=== PATIENT | male | born 1960 | race Caucasian/White ===

== ENCOUNTER → 2016-09-16 | Outpatient (CLI) | payer OTHER | END | disposition home or self-care (01) | LOC: ECT 09:25 | DX: F32.2 Major depressive disorder, single episode, severe without psychotic features (principal); K21.9 Gastro-esophageal reflux disease without esophagitis; E78.5 Hyperlipidemia, unspecified; R73.03 Prediabetes ==

== ENCOUNTER 2016-09-19 07:26 | Outpatient (RCR) | payer OTHER ==
[~2016-09-19] VITALS: Ht 175.3 cm; Wt 82.3 kg
[2016-09-19] MEDS ORDERED: Methohexital Sodium Syr 100mg/10ml IVP ONE (07:27)
[2016-09-19] MEDS ORDERED: Midazolam 2mg/2ml Inj ONE ×2 (07:27)
[2016-09-19] MEDS ORDERED: Ketorolac 60mg Inj ONE ×2 (07:27)
[2016-09-19] MEDS ORDERED: Succinylcholine 20mg/ml 10ml vial ONE ×2 (07:27)
[2016-09-19] MEDS ORDERED: NS 550ML IV ONE ×2 (07:27)
[2016-09-19] MEDS ORDERED: Ketorolac 60mg Inj IV ONE (10:03)
[2016-09-21] MEDS ORDERED: Ketorolac 60mg Inj ONE (07:00)
[2016-09-21] MEDS ORDERED: Midazolam 2mg/2ml Inj ONE (07:00)
[2016-09-21] MEDS ORDERED: Succinylcholine 20mg/ml 10ml vial ONE (07:00)
[2016-09-21] MEDS ORDERED: Methohexital Sodium Syr 100mg/10ml IVP ONE (07:00)
[2016-09-21] MEDS ORDERED: NS 550ML IV ONE (07:00)
[2016-09-23] MEDS ORDERED: Methohexital Sodium Syr 100mg/10ml IVP ONE (07:00)
[2016-09-23] MEDS ORDERED: Midazolam 2mg/2ml Inj ONE (07:00)
[2016-09-23] MEDS ORDERED: Ketorolac 60mg Inj ONE (07:00)
[2016-09-23] MEDS ORDERED: NS 550ML IV ONE (07:00)
[2016-09-23] MEDS ORDERED: Succinylcholine 20mg/ml 10ml vial ONE (07:00)
[2016-09-26] MEDS ORDERED: Succinylcholine 20mg/ml 10ml vial ONE (07:00)
[2016-09-26] MEDS ORDERED: Ketorolac 60mg Inj ONE (07:00)
[2016-09-26] MEDS ORDERED: Methohexital Sodium Syr 100mg/10ml IVP ONE (07:00)
[2016-09-26] MEDS ORDERED: NS 550ML IV ONE (07:00)
[2016-09-26] MEDS ORDERED: Midazolam 2mg/2ml Inj ONE (07:00)
[2016-09-26] MEDS ORDERED: Atropine Sulfate 0.4mg/ml inj IVP PRN (09:03)
[2016-09-28] MEDS ORDERED: Methohexital Sodium Syr 100mg/10ml IVP ONE (07:00)
[2016-09-28] MEDS ORDERED: NS 550ML IV ONE (07:00)
[2016-09-28] MEDS ORDERED: Midazolam 2mg/2ml Inj ONE (07:00)
[2016-09-28] MEDS ORDERED: Succinylcholine 20mg/ml 10ml vial ONE (07:00)
[2016-09-28] MEDS ORDERED: Ketorolac 60mg Inj ONE (07:00)
[2016-09-30] MEDS ORDERED: Succinylcholine 20mg/ml 10ml vial ONE (07:00)
[2016-09-30] MEDS ORDERED: Methohexital Sodium Syr 100mg/10ml IVP ONE (07:00)
[2016-09-30] MEDS ORDERED: Midazolam 2mg/2ml Inj ONE (07:00)
[2016-09-30] MEDS ORDERED: Ketorolac 60mg Inj ONE (07:00)
[2016-09-30] MEDS ORDERED: NS 550ML IV ONE (07:00)
[2016-10-03] MEDS ORDERED: Ketorolac 60mg Inj ONE (07:00)
[2016-10-03] MEDS ORDERED: Succinylcholine 20mg/ml 10ml vial ONE (07:00)
[2016-10-03] MEDS ORDERED: NS 550ML IV ONE (07:00)
[2016-10-03] MEDS ORDERED: Ketamine 500mg Inj ONE (07:00)
[2016-10-03] MEDS ORDERED: Midazolam 2mg/2ml Inj ONE (07:00)
[2016-10-05] MEDS ORDERED: Succinylcholine 20mg/ml 10ml vial ONE (07:00)
[2016-10-05] MEDS ORDERED: Midazolam 2mg/2ml Inj ONE (07:00)
[2016-10-05] MEDS ORDERED: Methohexital Sodium Syr 100mg/10ml IVP ONE (07:00)
[2016-10-05] MEDS ORDERED: Ketorolac 60mg Inj ONE (07:00)
[2016-10-05] MEDS ORDERED: NS 550ML IV ONE (07:00)
[2016-10-07] MEDS ORDERED: NS 550ML IV ONE (07:00)
[2016-10-07] MEDS ORDERED: Ketorolac 60mg Inj ONE (07:00)
[2016-10-07] MEDS ORDERED: Midazolam 2mg/2ml Inj ONE (07:00)
[2016-10-07] MEDS ORDERED: Methohexital Sodium Syr 100mg/10ml IVP ONE (07:00)
[2016-10-07] MEDS ORDERED: Succinylcholine 20mg/ml 10ml vial ONE (07:00)
[2016-10-10] MEDS ORDERED: Methohexital Sodium Syr 100mg/10ml IVP ONE (09:00)
[2016-10-10] MEDS ORDERED: NS 550ML IV ONE (09:00)
[2016-10-10] MEDS ORDERED: Midazolam 2mg/2ml Inj ONE (09:00)
[2016-10-10] MEDS ORDERED: Succinylcholine 20mg/ml 10ml vial ONE (09:00)
[2016-10-10] MEDS ORDERED: Ketorolac 30mg Inj ONE ×2 (09:00)
== END 2016-10-13 | disposition home or self-care (01) ==
LOC: ECT 07:26
DX: F32.2 Major depressive disorder, single episode, severe without psychotic features (principal)
CPT/HCPCS: 90870; J0330; J1885; J2250; J2405; J3490; J7040

== ENCOUNTER 2016-10-14 04:43 | Outpatient (RCR) | payer OTHER ==
[~2016-10-14] VITALS: Ht 175.3 cm; Wt 82.1 kg
[2016-10-14] MEDS ORDERED: Succinylcholine 20mg/ml 10ml vial ONE ×2 (04:44)
[2016-10-14] MEDS ORDERED: NS 500ML IV ONE ×2 (04:44)
[2016-10-14] MEDS ORDERED: Midazolam 2mg/2ml Inj ONE ×2 (04:44)
[2016-10-14] MEDS ORDERED: Methohexital Sodium Syr 100mg/10ml IVP ONE ×2 (04:44)
[2016-10-14] MEDS ORDERED: Ketorolac 60mg Inj ONE ×2 (04:44)
[2016-10-19] MEDS ORDERED: Midazolam 2mg/2ml Inj ONE (07:00)
[2016-10-19] MEDS ORDERED: Methohexital Sodium Syr 100mg/10ml IVP ONE (07:00)
[2016-10-19] MEDS ORDERED: NS 500ML IV ONE (07:00)
[2016-10-19] MEDS ORDERED: Ketorolac 60mg Inj ONE (07:00)
[2016-10-19] MEDS ORDERED: Succinylcholine 20mg/ml 10ml vial ONE (07:00)
[2016-10-19] MEDS ORDERED: Sodium Chloride 500ML 500 ML IV ONE (16:45)
[2016-10-21] MEDS ORDERED: Midazolam 2mg/2ml Inj ONE (06:00)
[2016-10-21] MEDS ORDERED: Methohexital Sodium Syr 100mg/10ml IVP ONE (06:00)
[2016-10-21] MEDS ORDERED: NS 500ML IV ONE (06:00)
[2016-10-21] MEDS ORDERED: Ketorolac 60mg Inj ONE (06:00)
[2016-10-21] MEDS ORDERED: Succinylcholine 20mg/ml 10ml vial ONE (06:00)
[2016-10-21] MEDS ORDERED: Sodium Chloride 500ML 500 ML IV ONE (08:05)
[2016-10-24] MEDS ORDERED: Sodium Chloride 500ML 500 ML IV ONE (09:37)
[2016-10-31] MEDS ORDERED: Succinylcholine 20mg/ml 10ml vial ONE (08:00)
[2016-10-31] MEDS ORDERED: Midazolam 2mg/2ml Inj ONE (08:00)
[2016-10-31] MEDS ORDERED: Methohexital Sodium Syr 100mg/10ml IVP ONE (08:00)
[2016-10-31] MEDS ORDERED: Ketorolac 60mg Inj ONE (08:00)
[2016-10-31] MEDS ORDERED: NS 500ML IV ONE (08:00)
== END 2016-11-12 | disposition home or self-care (01) ==
LOC: ECT 04:43
DX: F32.2 Major depressive disorder, single episode, severe without psychotic features (principal)
CPT/HCPCS: 90870; J0330; J2250; J2405; J7040

== ENCOUNTER 2016-10-14 06:18 | Outpatient (RCR) | payer OTHER ==
[~2016-10-14] VITALS: Ht 175.3 cm; Wt 82.3 kg
[2016-10-31] MEDS ORDERED: Sodium Chloride 500ML 500 ML IV ONE (07:49)
[2016-11-07] MEDS ORDERED: NS 500ML IV ONE (06:00)
[2016-11-07] MEDS ORDERED: Midazolam 2mg/2ml Inj ONE (06:00)
[2016-11-07] MEDS ORDERED: Ketorolac 60mg Inj ONE (06:00)
[2016-11-07] MEDS ORDERED: Succinylcholine 20mg/ml 10ml vial ONE (06:00)
[2016-11-07] MEDS ORDERED: Methohexital Sodium Syr 100mg/10ml IVP ONE (06:00)
[2016-11-07] MEDS ORDERED: Sodium Chloride 500ML 500 ML IV ONE (08:53)
== END 2016-11-12 | disposition home or self-care (01) ==
LOC: ECT 06:18
DX: F32.2 Major depressive disorder, single episode, severe without psychotic features (principal)
CPT/HCPCS: 90870; J0330; J2250; J2405; J7040

== ENCOUNTER 2016-11-21 06:32 | Outpatient (RCR) | payer OTHER ==
[~2016-11-21] VITALS: Ht 175.3 cm; Wt 82.1 kg
[2016-11-21] MEDS ORDERED: Methohexital Sodium Syr 100mg/10ml IVP ONE (06:33)
[2016-11-21] MEDS ORDERED: Midazolam 2mg/2ml Inj ONE (06:33)
[2016-11-21] MEDS ORDERED: NS 500ML IV ONE (06:33)
[2016-11-21] MEDS ORDERED: Ketorolac 60mg Inj ONE (06:33)
[2016-11-21] MEDS ORDERED: Succinylcholine 20mg/ml 10ml vial ONE (06:33)
[2016-11-21] MEDS ORDERED: Sodium Chloride 500ML 500 ML IV ONE (08:12)
== END 2016-12-13 | disposition home or self-care (01) ==
LOC: ECT 06:32
DX: F32.2 Major depressive disorder, single episode, severe without psychotic features (principal)
CPT/HCPCS: 90870; J0330; J2250; J2405; J7040

== ENCOUNTER 2016-12-14 05:01 | Outpatient (RCR) | payer OTHER ==
[~2016-12-14] VITALS: Ht 175.3 cm; Wt 82.1 kg
[2016-12-14] MEDS ORDERED: NS 500ML IV ONE (05:02)
[2016-12-14] MEDS ORDERED: Ketorolac 60mg Inj ONE (05:02)
[2016-12-14] MEDS ORDERED: Methohexital Sodium Syr 100mg/10ml IVP ONE (05:02)
[2016-12-14] MEDS ORDERED: Midazolam 2mg/2ml Inj ONE (05:02)
[2016-12-14] MEDS ORDERED: Succinylcholine 20mg/ml 10ml vial ONE (05:02)
[2016-12-14 08:33] VITALS: BP 127/86
[2016-12-14] MEDS ORDERED: Sodium Chloride 500ML 500 ML IV ONE (08:54)
[2016-12-14 09:00] VITALS: BP 128/67
[2016-12-14 09:05] VITALS: BP 121/59
[2016-12-14 09:10] VITALS: BP 112/62
[2016-12-14 09:15] VITALS: BP 110/60
== END 2017-01-12 | disposition home or self-care (01) ==
LOC: ECT 05:01
DX: F32.2 Major depressive disorder, single episode, severe without psychotic features (principal)
CPT/HCPCS: 90870; J0330; J2250; J2405; J7040

== ENCOUNTER 2017-01-16 05:52 | Outpatient (RCR) | payer OTHER ==
[~2017-01-16] VITALS: Ht 30.5 cm; Wt 0.5 kg
[2017-01-16] MEDS ORDERED: Ketorolac 60mg Inj ONE (05:53)
[2017-01-16] MEDS ORDERED: NS 500ML ONE (05:53)
[2017-01-16] MEDS ORDERED: Succinylcholine 20mg/ml 10ml vial ONE (05:53)
[2017-01-16] MEDS ORDERED: Methohexital Sodium Syr 100mg/10ml IVP ONE (05:53)
[2017-01-16] MEDS ORDERED: Midazolam 2mg/2ml Inj ONE (05:53)
[2017-01-16 09:26] VITALS: BP 141/82
[2017-01-16] MEDS ORDERED: Sodium Chloride 500ML 500 ML IV ONE (09:37)
[2017-01-16 09:40] VITALS: BP 127/55
[2017-01-16 09:45] VITALS: BP 114/59
[2017-01-16 09:50] VITALS: BP 119/61
[2017-01-16 09:55] VITALS: BP 150/70
== END 2017-02-12 | disposition home or self-care (01) ==
LOC: ECT 05:52
DX: F32.2 Major depressive disorder, single episode, severe without psychotic features (principal)
CPT/HCPCS: 90870; J0330; J2250; J2405; J7040

== ENCOUNTER 2017-02-15 06:47 | Outpatient (RCR) | payer OTHER | END 2017-03-15 | disposition home or self-care (01) | LOC: ECT 06:47 | DX: F32.2 Major depressive disorder, single episode, severe without psychotic features (principal) ==